=== PATIENT | male | born 1945 | race Caucasian/White ===

== ENCOUNTER 2019-02-22 13:34 | Day surgery (SDC) | payer OTHER ==
[~2019-02-22] VITALS: Ht 188 cm; Wt 133.7 kg
[~2019-02-22 13:34] MED LIST: ASPI81CH PO; Altoprev20 MG PO; CARV3.125 PO; DIGITEK; DIGO.25; DILT180 PO; ENOX120I SQ; FURO20 PO; GLIPIZIDE; INS70/30I; INSULANI; Levothyroxine200 MCG; METF500; TAMS.4ER PO; WARF5 PO; ZESTORETIC 20-121 EA
== END 2019-02-22 15:47 | disposition home or self-care (01) ==
LOC: ORSCSDS 13:34
PROVIDERS: Ophthalmology
PROC: 08RK3JZ Replacement of Left Lens with Synthetic Substitute, Percutaneous Approach (ICD-10-PCS; principal; 2019-02-22 15:00)
DX: H25.12 Age-related nuclear cataract, left eye (principal); H21.81 Floppy iris syndrome; I10 Essential (primary) hypertension; I48.91 Unspecified atrial fibrillation; E11.9 Type 2 diabetes mellitus without complications; E03.9 Hypothyroidism, unspecified; E78.00 Pure hypercholesterolemia, unspecified; E66.01 Morbid (severe) obesity due to excess calories; Z68.37 Body mass index [BMI] 37.0-37.9, adult; Z79.82 Long term (current) use of aspirin; Z79.899 Other long term (current) drug therapy
CPT/HCPCS: 82947; J2001; J2250; J3010; V2632

== ENCOUNTER 2019-08-10 09:42 | Inpatient (IN) | payer MEDICARE, OTHER ==
[~2019-08-10] VITALS: Ht 188 cm; Wt 145.6 kg
[2019-08-10] MEDS ORDERED: Sulfamethoxazo1 EAC4 PO (10:58)
[2019-08-10] MEDS ORDERED: LANOXIN125 MCG PO (10:59)
[2019-08-10] MEDS ORDERED: Humalog100 UNIT/1 SC (10:59)
[2019-08-10] MEDS ORDERED: METF500 PO (10:59)
[2019-08-10] MEDS ORDERED: TORSE20 PO (11:00)
[2019-08-10] MEDS ORDERED: LEVO-T175 MCG PO (11:00)
[2019-08-10 11:38] LABS: BASOPHILS ABSOLUTE AUTO 0.02 K/mm3 (0.00-0.23); BASOPHILS PERCENT AUTO 0 % (0-2); EOSINOPHILS ABSOLUTE AUTO 0.05 K/mm3 (0.00-0.68); EOSINOPHILS PERCENT AUTO 1 % (0-6); Hematocrit 34.2 % (37.0-53.0); Hemoglobin 11.2 g/dL (13.5-17.5); IMMATURE GRAN ABSOLUTE AUTO 0.03 K/mm3 (0.00-0.10); IMMATURE GRAN PERCENT AUTO 1 % (0-1); LYMPHOCYTES ABSOLUTE AUTO 0.69 K/mm3 (0.84-5.20); LYMPHOCYTES PERCENT AUTO 11 % (21-46); MONOCYTES ABSOLUTE AUTO 0.69 K/mm3 (0.16-1.47); MONOCYTES PERCENT AUTO 11 % (4-13); Mean Corpuscular HGB 28.6 pg (26.0-34.0); Mean Corpuscular HGB Conc 32.7 g/dL (31.5-36.5); Mean Corpuscular Volume 88 fL (80-100); Mean Platelet Volume 9.2 fL (9.1-12.4); NEUTROPHILS ABSOLUTE AUTO 4.78 K/mm3 (1.96-9.15); NEUTROPHILS PERCENT AUTO 76 % (41-73); Platelet Count 249 K/mm3 (150-400); RDW Coefficient Variation 15.6 % (11.7-14.2); RDW Standard Deviation 49.7 fL (35.1-46.3); Red Blood Cell Count 3.91 M/mm3 (4.30-5.90); White Blood Cell Count 6.26 K/mm3 (4.00-11.30)
[2019-08-10 11:57] LABS: Albumin, Blood 3.2 g/dL (3.4-5.0); Albumin/Globulin Ratio 0.7 (0.8-1.8); Bun/Creatinine Ratio 22.8 (12.0-20.0); Calcium, Blood 8.4 mg/dL (8.5-10.1); Creatinine, Blood 1.36 mg/dL (0.60-1.20); Globulin, Blood 4.8 g/dL (2.2-4.0); Potassium, Blood 4.5 mmol/L (3.5-5.5)
--- NOTE | 2019-08-10 15:20 | NUR ---
Assumed care of patient Received report from Khushbu VARGAS. Patient arrived via w/c and granddaughter at side. Transferred from w/c to bed independently. Oriented to room and settled in.
--- NOTE | 2019-08-10 16:19 | NUR ---
History, Chart, Medications and Allergies reviewed before start of procedure. Patient confirms NPO status and agrees with scheduled surgery, SINCE 929, ANESTHESIA AWARE OF 1/2 BAGEL AND CREAM CHEESE. Pre-Op teaching done. Pt verbalizes understanding.
--- NOTE | 2019-08-10 17:26 | NUR ---
08/10/19 1726 Nadya Montanez PATIENT'S OXYGEN CONCENTRATION SATURATION DECREASED AT BEGINNING OF CASE. PATIENT BECAME UNSTABLE. PATIENT TRANSFERRED TO ICU INTUBATED. INITIAL COUNT WAS THE ONLY COUNT PERFORMED. DR. OWENS STATED HE WOULD PUT IN ORDER FOR X-RAY IN ICU.
[2019-08-10 18:07] LABS: PCO2 Arterial 40.3 mmHg (35-45); PO2 Arterial 81.2 mmHg (80-100); pH Blood Arterial 7.44 (7.35-7.45)
--- NOTE | 2019-08-10 18:08 | NUR ---
RETURN FROM [facility]: PT RETURNED FROM PACER PLACEMENT PROCEDURE AT APPROX 1800. ON ARRIVAL, HE IS A&O, PLEASANT & COOPERATIVE. PER REPORT, SINGLE LEAD PACER WAS PLACED W/ INCISION NOTED TO L UPPER CHEST WALL. AREA SLIGHTLY TENDER TO PALPATION W/ SMALL AMNT OF SWELLING NOTED. 1 CM AREA OF SS DRAINAGE NOTED TO DRESSING IS UNCHANGED SINCE PT ARRIVAL. HYPOTENSIVE ON ARRIVAL, PER REPORT, DR GOMEZ IS AWARE & OKAY W/ HYPOTENSION LONG MAP REMAINS > 60. PT HAS NO DIZZINESS OR LIGHTHEADEDNESS R/T HYPOTENSION. 1 MG VERSED & 25 MCG FENTANYL GIVEN FOR CONSCIOUS SEDATION PER REPORT. ZOSYN INFUSING ON ARRIVAL. PACER SITE PRECAUTIONS HAVE BEEN DISCUSSED W/ THE PT & HE VERBALIZES UNDERSTANDING OF THIS. WILL CONTINUE TO MONITOR & REPORT OFF TO PRIMARY RN.
[2019-08-10 18:20] LABS: Troponin I <0.015 ng/mL (0.000-0.040)
[2019-08-10 18:28] LABS: Digoxin (Lanoxin) 0.91 ug/mL (0.80-2.00)
--- NOTE | 2019-08-10 18:56 | NUR ---
ARRIVAL TO ICU 1705 - PT ARRIVED TO ICU AT THIS TIME FROM OR. ARRIVED WITH ELEVATED HR 150S. LUNG SOUNDS COARSE AND RHONCHORUS THROUGHOUT. ETT SECURED AND VENT ATTACHED TO AC MODE BY RT. OGT INSERTED AND ATTACHED TO LIWS. CXR AND XRAYS OF FEET OBTAINED AT ARRIVAL TO ROOM. BUE RESTRAINED. PROPOFOL GTT STARTED AT ARRIVAL. MERLOS CATH INSERTED. HEPARIN GTT STARTED PER ORDERS. WILL GIVE BEDSIDE, HANDOFF REPORT TO NOC RN.
--- NOTE | 2019-08-10 19:00 | NUR ---
ASSUMED CARE ASSUMED CARE OF PATIENT. REMAINS INTUBATED- AC 14, TV 500, PEEP 10, FIO2 50%. RR 18-22. SEDATED WITH PROPOFOL AT 35MCG/KG/MIN. OPENS EYES MINIMALLY TO NOXIOUS STIMULI. OCCASIONAL SPONTANEOUS MOVEMENT NOTED IN UPPER AND LOWER EXTREMITIES. NOT FOLLOWING ANY COMMANDS. BILATERAL SOFT WRIST RESTRAINTS IN PLACE. OG TO LIS WITH SCANT CLEAR DRAINAGE. ABD SEVERLY DISTENDED AND FIRM. HYPOACTIVE, TYMPANIC BTs. MERLOS PATENT AND DRAININD CLEAR DARK YELLOW URINE. RIGHT FOOT WITH NON-ADHERENT DRSG AND COOPER WRAP IN PLACE. HEPARIN INFUSING PER PHARMACY. SEE SHIFT ASSESSMENT FOR FULL ASSESSMENT.
[2019-08-10 19:10] LABS: Source, Urine Catheter
[2019-08-10 19:12] LABS: Bilirubin, Urine Neg (Neg); Blood, Urine 2+ (Neg); Glucose Qualitative, Urine Neg (Neg); Ketones, Urine 1+ (Neg); Leukocyte Esterase, Urine 1+ (Neg); Nitrite, Urine Neg (Neg); Protein, Urine 2+ (Neg); Urobilinogen, Urine 2+ (Normal)
[2019-08-10 19:23] LABS: Appearance, Urine Clear (Clear); Color, Urine Yellow (P-Yellow)
[2019-08-10 19:25] LABS: Bacteria Few /hpf; Squamous Epithelial Cells Few /hpf (Few)
--- NOTE | 2019-08-10 21:12 | NUR ---
HYPOTHERMIA TEMPERATURE IS 95.1 PER MERLOS TEMP PROBE- WARM BLANKETS APPLIED AT THIS TIME.
--- NOTE | 2019-08-10 22:20 | NUR ---
HYPOTHERMIA TEMP 94.6 VIA MERLOS TEMP PROBE- RICHARDSON KINER ON AT THIS TIME.
[2019-08-11 02:56] LABS: PCO2 Arterial 29.9 mmHg (35-45); PO2 Arterial 73.7 mmHg (80-100); pH Blood Arterial 7.49 (7.35-7.45)
[2019-08-11 02:59] LABS: BASOPHILS ABSOLUTE AUTO 0.01 K/mm3 (0.00-0.23); BASOPHILS PERCENT AUTO 0 % (0-2); EOSINOPHILS PERCENT AUTO 0 % (0-6); Hematocrit 31.2 % (37.0-53.0); Hemoglobin 10.6 g/dL (13.5-17.5); IMMATURE GRAN ABSOLUTE AUTO 0.03 K/mm3 (0.00-0.10); IMMATURE GRAN PERCENT AUTO 1 % (0-1); LYMPHOCYTES ABSOLUTE AUTO 0.67 K/mm3 (0.84-5.20); LYMPHOCYTES PERCENT AUTO 10 % (21-46); MONOCYTES ABSOLUTE AUTO 0.28 K/mm3 (0.16-1.47); MONOCYTES PERCENT AUTO 4 % (4-13); Mean Corpuscular HGB 29.4 pg (26.0-34.0); Mean Corpuscular Volume 86 fL (80-100); Mean Platelet Volume 9.1 fL (9.1-12.4); NEUTROPHILS ABSOLUTE AUTO 5.58 K/mm3 (1.96-9.15); NEUTROPHILS PERCENT AUTO 85 % (41-73); Platelet Count 199 K/mm3 (150-400); RDW Coefficient Variation 15.5 % (11.7-14.2); RDW Standard Deviation 49.5 fL (35.1-46.3); Red Blood Cell Count 3.61 M/mm3 (4.30-5.90); White Blood Cell Count 6.57 K/mm3 (4.00-11.30)
[2019-08-11 03:23] LABS: Albumin, Blood 2.5 g/dL (3.4-5.0); Albumin/Globulin Ratio 0.6 (0.8-1.8); Bun/Creatinine Ratio 25.8 (12.0-20.0); Calcium, Blood 7.8 mg/dL (8.5-10.1); Creatinine, Blood 1.28 mg/dL (0.60-1.20); Free Thyroxine 1.43 ng/dL (0.70-1.60); Globulin, Blood 4.1 g/dL (2.2-4.0); Magnesium, Blood 1.9 mg/dL (1.6-2.4); Phosphorus, Blood 3.9 mg/dL (2.5-4.9); Potassium, Blood 4.8 mmol/L (3.5-5.5); Total Protein, Blood 6.6 g/dL (6.4-8.2)
[2019-08-11 03:26] LABS: Thyroid Stimulating Hormone 2.06 uIU/mL (0.360-4.800)
--- NOTE | 2019-08-11 03:45 | NUR ---
HEPARIN GTT CRITICAL PTT RESULTS CALLED TO PHARMACY. HEPARIN ON HOLD AT THIS TIME FOR ONE HOUR PER PHARMACY.
--- NOTE | 2019-08-11 06:35 | NUR ---
SHIFT SUMMARY NO ACUTE CHANGES. REMAINS INTUBATED- AC 14, TV 500, PEEP 10, FIO2 50%. RR 16-20s. MINIMAL SPUTUM PRODUCTION NOTED. SEDATED WITH PROPOFOL @ 35MCG/KG/MIN. MOVES ALL EXTREMITIES AND FOLLOWS SIMPLE COMMANDS. REACHES FOR ETT WHEN RESTRAINTS OFF. NODS HEAD YES/NO APPROPRIATELY. MONITOR SHOWS AFIB WITH BBB, RATE 50-80s. BP STABLE. RICHARDSON HUGGER ON FOR SEVERAL HOURS TO BRINGH TEMPERATURE UP. TEMP NOW 97.5. OG TO LIS WITH GREENISH-BROWN DRAINAGE. MERLOS PATENT AND DRAINING- BLOOD TINGED URINE NOTED THIS AM. NO CLOTS NOTED. HEPARIN GTT OFF FROM [id number] D/T CRITICALLY HIGH PTT. RESTARTED @ 0600 @ 13UNITS/KG/HR (27CC/HR). RIGHT FOOT DRSG C/D/I. WILL REPORT TO DAY SHIFT RN WHEN AVAILABLE.
--- NOTE | 2019-08-11 08:38 | NUR ---
DR. HUSTON IN TO SEE PT. INFORMED HIM OF PT'S HIGH BLOOD SUGARS AND RECEIVED ORDER TO INCREASE SLIDING SCALE TO MEDIUM SCALE. MD ASKED ABOUT ECHO RESULTS. NO REPORTS SEEN IN CHART AND NO ORDER FOR ECHO SEEN SO DR. HUSTON GAVE ORDER TO GET ECHO.
--- NOTE | 2019-08-11 09:44 | NUR ---
DR. BARKLEY TO THE BEDSIDE AND GAVE ORDER FOR WEANING TRIAL. PROPOFOL TURNED OFF AND PT WOKE UP QUICKLY, FOLLOWING COMMANDS, PULLING HARD AT THE RESTRAINTS TO TRY AND GET AT THE ETT. RT AND DR. BARKLEY AT THE BEDSIDE AND SWITCHED VENTILATOR SETTINGS FOR WEAN. DR. BARKLEY GAVE OK TO EXTUBATE. PT EXTUBATED BY RT DAVONTE AT 0940 AND PLACED ON 3L/NC. SPO2 98% SO O2 TURNED TO 2L/NC. PT IS DROWSY BUT TALKING CLEARLY. INSTRUCTIONS GIVEN FOR POST EXTUBATION PLAN OF CARE. CONTINUING TO MONITOR.
[2019-08-11] MEDS ORDERED: INSULANPEN SC (11:46)
--- NOTE | 2019-08-11 12:14 | NUR ---
echocardiogram completed
--- NOTE | 2019-08-11 13:09 | NUR ---
REASSESSMENT: PT WAS EXTUBATED THIS MORNING AND HAS DONE WELL SINCE. OXYGEN WAS TITRATED OFF AND PT IS MAINTAINIG SPO2 IN THE 90S ON RA. LUNGS ARE CLEAR THIS AFTERNOON, BUT DIM. PT HAS SLIGHT COUGH/CLEARING OF HIS THROAT, NOT PRODUCING ANY SPUTUM. HR REMAINS AFIB, RATE GOES UP TO THE 120S WITH ACTIVITY. BP STABLE. OG REMOVED WITH EXTUBATION AND PT IS TOLERATING DIABETIC DIET. DR. HUSTON NOTIFIED THAT PT TAKES LANTUS AT HOME AND INSULIN WAS ORDERED AND GIVEN WITH LUNCH. MERLOS REMOVED PER DR. BARKLEY'S ORDERS. PT'S FAMILY HAS BEEN BY AND WAS FULLY UPDATED.
--- NOTE | 2019-08-11 16:31 | NUR ---
SHIFT SUMMARY: PT HAS DONE WELL SINCE BEING EXTUBATED TODAY. HE REMAINS ON RA AND HIS LUNGS ARE CLEAR. AFIB WITH RATE IN THE 110-120S. BP STABLE. HE HAS BEEN OUT OF THE BED TO THE CHAIR WITH MINIMAL ASSISTANCE. DRESSING CHANGED ON HIS R FOOT PER DR. OWENS'S ORDER. MERLOS REMOVED THIS AFTERNOON, BUT PT HAS NOT VOIDED YET. CONTINUING TO MONITOR.
--- NOTE | 2019-08-11 20:00 | NUR ---
ASSUMED CARE NOTE: ASSUMED CARE OF PT AT 1900, RECEVIED REPORT FROM BIANCA. UPON ENTERING ROOM PT WAS SITTING IN RECLINER AND WAS ON ROOM AIR.HEPARIN WAS AT 13U/KG/HR. PT WAS ASKED TO ATTEMPT TO USE THE URINAL TO VOID, DUE TO PT'S NO URINE OUTPUT AFTER MERLOS REMOVAL. PT THEN STATED " I DO NOT THINK I HAVE TO GO, BUT I WILL TRY IN THE TOILET". PT WAS THEN ASSISTED TO THE TOILET, WITH MINIMAL ASSISTANCE. HOWEVER PT WAS UNSTEADY AND NEEDED SEVERAL CUES DURING AMBULATION TO TRANSFER SAFETLY. AFTER SEVERAL MINUTES OF ATTEMPTING TO URINATE, PT STATED " I FEEL LIKE I WENT" THERE WERE BLOOD CLOTS NOTED MIXED WITH URINE. PT WAS THEN TAKEN BACK TO BED, BED AT LOWEST LEVEL, ALARM ON, CALL LIGHT WITHIN REACH. WILL CONTINUE TO MONITOR FOR CHANGES.
--- NOTE | 2019-08-11 22:44 | NUR ---
UPDATE: DR. BARKLEY WAS ADVISED OF CRITICAL VALUE AT A.PTT, LOW URINE OUTPUT AND BLOOD IN URINE. HEPARIN WAS ADJUSTED TO 12U/KG/HR, AND ORDER TO BLADDER SCAN WAS GIVEN.
--- NOTE | 2019-08-12 02:15 | NUR ---
UPDATE: PT WAS ABLE TO VOID APPROX. 175 CC IN ONE ATTEMPT, HOWEVER, PT WAS COMPLANING OF PAIN WITH URINATIONS. PT STATED " I THINK I AM EMPTYING MY BLADDER, BUT I DO NOT KNOW". PT WAS THEN BLADDER SCANNED WHICH INDICATED NO RESIDUAL URINE. PT URINE IS BLOODY AND HE CONTINUES TO OOZE BLOOD FROM URETHRAL OPENING. WHILE PT WAS TRYING TO FALL ASLEEP HIS SP02 DROPPED TO 85%, PT WAS THEN PLACED ON 2L OF 02 VIA NC, HIS SPO2 IS NOW MAINTANING ABOVE 90%.
[2019-08-12 04:36] LABS: BASOPHILS ABSOLUTE AUTO 0.02 K/mm3 (0.00-0.23); BASOPHILS PERCENT AUTO 0 % (0-2); EOSINOPHILS ABSOLUTE AUTO 0.04 K/mm3 (0.00-0.68); EOSINOPHILS PERCENT AUTO 0 % (0-6); Hematocrit 31.1 % (37.0-53.0); Hemoglobin 10.5 g/dL (13.5-17.5); IMMATURE GRAN ABSOLUTE AUTO 0.04 K/mm3 (0.00-0.10); IMMATURE GRAN PERCENT AUTO 0 % (0-1); LYMPHOCYTES ABSOLUTE AUTO 1.08 K/mm3 (0.84-5.20); LYMPHOCYTES PERCENT AUTO 11 % (21-46); MONOCYTES ABSOLUTE AUTO 1.17 K/mm3 (0.16-1.47); MONOCYTES PERCENT AUTO 12 % (4-13); Mean Corpuscular HGB 29.2 pg (26.0-34.0); Mean Corpuscular HGB Conc 33.8 g/dL (31.5-36.5); Mean Corpuscular Volume 87 fL (80-100); NEUTROPHILS ABSOLUTE AUTO 7.32 K/mm3 (1.96-9.15); NEUTROPHILS PERCENT AUTO 76 % (41-73); Platelet Count 244 K/mm3 (150-400); RDW Coefficient Variation 15.5 % (11.7-14.2); RDW Standard Deviation 49.4 fL (35.1-46.3); Red Blood Cell Count 3.59 M/mm3 (4.30-5.90); White Blood Cell Count 9.67 K/mm3 (4.00-11.30)
[2019-08-12 04:54] LABS: Bun/Creatinine Ratio 29.9 (12.0-20.0); Creatinine, Blood 1.44 mg/dL (0.60-1.20); Magnesium, Blood 1.9 mg/dL (1.6-2.4); Phosphorus, Blood 4.2 mg/dL (2.5-4.9); Potassium, Blood 3.9 mmol/L (3.5-5.5)
--- NOTE | 2019-08-12 06:22 | NUR ---
SHIFT SUMMARY: PT HAS BEEN UNABLE TO GET REST DURING THIS SHIFT, STATING THAT HE IS HAVING TROUBLE SLEEPING. PT REMAINS ALERT AND ORIENTED, HOWEVER, HE SEEMS TO HAVE FORGETFUL MOMENTS WHERE INFO NEEDS TO BE REITERATED TO HIM. PT REMAINS ON 2L OF 02 VIA NC DUE TO THE DROP IN SPO2 WHILE PT SLEEPS. PT HAS BEEN GETTING UP WITH MINIMAL ASSISTANCE TO THE TOILET. LAST URINE OUTPUT WAS MORE OG IN COLOR, NO BLOOD CLOTS NOTED. PT REMAINS IN A-FIB WITH HR RANGING 100-120 BPM. HEPARIN RUNNING AT 12U/KG/HR. WILL CONTINUE TO MONITOR PT UNTIL REPORT IS GIVEN TO ONCOMING SHIFT.
--- NOTE | 2019-08-12 10:46 | NUR ---
TRASNFER: PT TRANSFERRED TO RM 227 VIA WC WITH RN. PT TOLERATED TRANSFER WELL. ALL BELONGINGS SENT WITH PT.
[2019-08-12 16:01] LABS: International Normalized Ratio 1.11; Prothrombin Time Results 11.7 Sec (9.7-11.5)
--- NOTE | 2019-08-12 17:20 | NUR ---
PT TO U/S FOR PARACENTESIS
[2019-08-12 17:45] LABS: Vancomycin, Trough 14.4 ug/mL (5.0-10.0)
--- NOTE | 2019-08-12 20:47 | NUR ---
SUMMARY PT WENT TO RADIOLOGY THIS EVENING FOR A PARACENTESIS. THEY REMOVED 4 L AND STATED THAT HE WOULD BENEFIT FROM HAVING THE PROCEDURE AGAIN TOMORROW. VITAL SIGNS REMAIN STABLE AT THIS TIME. PT EDUCATED ABOUT THE PROCEDURE AND RISKS BEFORE AND AFTER AND ENCOURAGED TO CALL THE NURSE FOR ANY CHANGES OR IF HE STARTS TO FEEL DIFFERENT IN ANY WAY. PT STATED UNDERSTANDING. LUNGS REMAIN CLEAR, SLIGHTLY DIM IN BASES, ON ROOM AIR. DRSG IS C/D/I. PT ENC TO ELEVATE LOWER EXTREMITIES. HEPERIN INFUSING PER PHARMACY @ 20.8 UNITS PER HOUR. A CRITICAL PTT IS SHOWING IN THE CHART DUE TO A CONTAMINATED DRAW WHEN THE PT FIRST ARRIVED TO THE FLOOR. THE CHARGE NURSE MISHA THE SAMPLE FROM THE MIDLINE AND WAS UNAWARE THAT THE PT WAS ON HEPERIN. THE BLOOD SAMPLE WAS REDRAWN. PT IS A&O X4, BEDSIDE REPORT WAS GIVEN TO THE NOC RN. CALL LIGHT IN REACH.
[2019-08-13 04:48] LABS: BASOPHILS ABSOLUTE AUTO 0.02 K/mm3 (0.00-0.23); BASOPHILS PERCENT AUTO 0 % (0-2); EOSINOPHILS ABSOLUTE AUTO 0.11 K/mm3 (0.00-0.68); EOSINOPHILS PERCENT AUTO 1 % (0-6); Hematocrit 29.2 % (37.0-53.0); Hemoglobin 9.8 g/dL (13.5-17.5); IMMATURE GRAN ABSOLUTE AUTO 0.04 K/mm3 (0.00-0.10); IMMATURE GRAN PERCENT AUTO 0 % (0-1); LYMPHOCYTES PERCENT AUTO 13 % (21-46); MONOCYTES ABSOLUTE AUTO 1.01 K/mm3 (0.16-1.47); MONOCYTES PERCENT AUTO 11 % (4-13); Mean Corpuscular HGB 28.4 pg (26.0-34.0); Mean Corpuscular HGB Conc 33.6 g/dL (31.5-36.5); Mean Corpuscular Volume 85 fL (80-100); Mean Platelet Volume 9.2 fL (9.1-12.4); NEUTROPHILS ABSOLUTE AUTO 6.63 K/mm3 (1.96-9.15); NEUTROPHILS PERCENT AUTO 74 % (41-73); Platelet Count 243 K/mm3 (150-400); RDW Coefficient Variation 15.5 % (11.7-14.2); RDW Standard Deviation 47.8 fL (35.1-46.3); Red Blood Cell Count 3.45 M/mm3 (4.30-5.90); White Blood Cell Count 9.01 K/mm3 (4.00-11.30)
[2019-08-13 05:06] LABS: Anion Gap 7 mmol/L (6-16); Blood Urea Nitrogen 40 mg/dL (8-24); Bun/Creatinine Ratio 33.3 (12.0-20.0); CO2, Blood 27 mmol/L (21-32); Calcium, Blood 8.2 mg/dL (8.5-10.1); Chloride, Blood 90 mmol/L (98-108); Glomerular Filtration Rate >60 (60-); Glucose, Blood 176 mg/dL (70-99); Potassium, Blood 4.1 mmol/L (3.5-5.5); Sodium, Blood 124 mmol/L (136-145)
--- NOTE | 2019-08-13 05:42 | NUR ---
PATIENT WAS EXCITED TO BE OUT OF THE ICU AND IN A QUIETER UNIT TO GET SOME SLEEP. HOWEVER, HE LIKELY WOKE EVERY HOUR FOR SOME INTERVENTION. THE CLINICAL COORDINATOR CHANGED THE DRESSING TO HIS RT FOOT, PER THE ORDERS WITH 1 INCH IODAFORM, VASELINE GAUZE, 4x4S, COBAN AND AN COOPER WRAP. PATIENT HAD A PARACENTIESIS 12+ HOURS AGO AND HER STATED THAT HE IS ABLE TO MOVE AROUND EASIER AND THE HIS STOMACH IS MUCH SMALLER AND NOT TIGHT. THE 4x4 GAUZE ON THE RT SIDE OF HIS ABDOMEN HAD A SLIGHT PINK TINGE TO IT. CHANGED GAUZE AND TAPE. hE IS EXPECTED TO HAVE A SECOND PARACENTESIS TODAY.
--- NOTE | 2019-08-13 09:41 | NUR ---
PT TO XRAY VIA WHEELCHAIR.
--- NOTE | 2019-08-13 10:23 | NUR ---
PT BACK FROM XRAY AT 1020
--- NOTE | 2019-08-13 11:38 | NUR ---
DR. BARKLEY IN TO SEE PT TODAY AT 1100. PLAN FOR SLEEP STUDY AND FOLLOW-UP WITH DR. BARKLEY AFTER DISCHARGE. ORDER OBTAINED AND SCRIPT FAXED TO SLEEP LAB.
--- NOTE | 2019-08-13 11:48 | NUR ---
FAXED SLEEP STUDY ORDERS TO [facility]EP [facility].
--- NOTE | 2019-08-13 13:49 | NUR ---
PT TO PARACENTESIS
--- NOTE | 2019-08-13 16:01 | NUR ---
IMAGING SUGGESTED ALBUMIN FOR PARACENTESIS TAKE OFF OF GREATER THAN 4L. NOTIFIED DR HUSTON.
--- NOTE | 2019-08-13 18:43 | NUR ---
SHIFT SUMMARY DR. OWENS IN TO CHANGE DRESSING THIS EVENING. PARACENTESIS PERFORMED, 5L REMOVED. PATIENT REPORTED BLACK STOOLS, NOTIFIED DOCTOR AND NEW ORDERS OBTAINED. IND IN ROOM WITH CALL LIGHT WITHIN REACH.
[2019-08-13 20:44] LABS: BASOPHILS ABSOLUTE AUTO 0.02 K/mm3 (0.00-0.23); BASOPHILS PERCENT AUTO 0 % (0-2); EOSINOPHILS ABSOLUTE AUTO 0.06 K/mm3 (0.00-0.68); EOSINOPHILS PERCENT AUTO 1 % (0-6); Hematocrit 25.5 % (37.0-53.0); Hemoglobin 8.5 g/dL (13.5-17.5); IMMATURE GRAN ABSOLUTE AUTO 0.04 K/mm3 (0.00-0.10); IMMATURE GRAN PERCENT AUTO 1 % (0-1); LYMPHOCYTES ABSOLUTE AUTO 0.94 K/mm3 (0.84-5.20); LYMPHOCYTES PERCENT AUTO 14 % (21-46); MONOCYTES ABSOLUTE AUTO 0.92 K/mm3 (0.16-1.47); MONOCYTES PERCENT AUTO 13 % (4-13); Mean Corpuscular HGB 28.5 pg (26.0-34.0); Mean Corpuscular HGB Conc 33.3 g/dL (31.5-36.5); Mean Corpuscular Volume 86 fL (80-100); Mean Platelet Volume 8.7 fL (9.1-12.4); NEUTROPHILS ABSOLUTE AUTO 4.97 K/mm3 (1.96-9.15); NEUTROPHILS PERCENT AUTO 72 % (41-73); Platelet Count 174 K/mm3 (150-400); RDW Coefficient Variation 15.4 % (11.7-14.2); Red Blood Cell Count 2.98 M/mm3 (4.30-5.90); White Blood Cell Count 6.95 K/mm3 (4.00-11.30)
--- NOTE | 2019-08-13 22:09 | NUR ---
NOTIFIED DR HUSTON OF [facility] H/H RESULTS.NO NEW ORDERS RECEIVED.
[2019-08-14 05:32] LABS: BASOPHILS ABSOLUTE AUTO 0.02 K/mm3 (0.00-0.23); BASOPHILS PERCENT AUTO 0 % (0-2); EOSINOPHILS ABSOLUTE AUTO 0.12 K/mm3 (0.00-0.68); EOSINOPHILS PERCENT AUTO 1 % (0-6); Hematocrit 26.9 % (37.0-53.0); IMMATURE GRAN ABSOLUTE AUTO 0.03 K/mm3 (0.00-0.10); IMMATURE GRAN PERCENT AUTO 0 % (0-1); LYMPHOCYTES ABSOLUTE AUTO 0.98 K/mm3 (0.84-5.20); LYMPHOCYTES PERCENT AUTO 12 % (21-46); MONOCYTES ABSOLUTE AUTO 1.09 K/mm3 (0.16-1.47); MONOCYTES PERCENT AUTO 13 % (4-13); Mean Corpuscular HGB 29.2 pg (26.0-34.0); Mean Corpuscular HGB Conc 33.5 g/dL (31.5-36.5); Mean Corpuscular Volume 87 fL (80-100); Mean Platelet Volume 8.7 fL (9.1-12.4); NEUTROPHILS ABSOLUTE AUTO 6.21 K/mm3 (1.96-9.15); NEUTROPHILS PERCENT AUTO 74 % (41-73); Platelet Count 192 K/mm3 (150-400); RDW Coefficient Variation 15.5 % (11.7-14.2); RDW Standard Deviation 49.5 fL (35.1-46.3); Red Blood Cell Count 3.08 M/mm3 (4.30-5.90); White Blood Cell Count 8.45 K/mm3 (4.00-11.30)
[2019-08-14 05:48] LABS: Anion Gap 7 mmol/L (6-16); Blood Urea Nitrogen 34 mg/dL (8-24); CO2, Blood 27 mmol/L (21-32); Calcium, Blood 7.8 mg/dL (8.5-10.1); Chloride, Blood 97 mmol/L (98-108); Creatinine, Blood 1.03 mg/dL (0.60-1.20); Glomerular Filtration Rate >60 (60-); Glucose, Blood 107 mg/dL (70-99); Sodium, Blood 131 mmol/L (136-145)
--- NOTE | 2019-08-14 07:20 | NUR ---
SUMMARY SPOKE WITH DR JOHNSON REGARDING ? ABOUT IV FLUID ORDERS? HEP DRIP STOPPED.LABS. DR INSTRUCTED ME TO KEEP HEPARIN OFF AND TO CONTINUE TO MONITOR LABS AND WILL READDRESS THE REST IN AM.
--- NOTE | 2019-08-14 08:35 | NUR ---
DR HUSTON IN TO SEE PT.
--- NOTE | 2019-08-14 11:10 | NUR ---
DR. HUSTON IN TO SEE PATIENT THIS MORNING. NEW ORDERS OBTAINED.
--- NOTE | 2019-08-14 12:11 | NUR ---
LEFT MS WITH DR. NESBITT'S ANSWERING SERVICE TODAY AT 1200.
--- NOTE | 2019-08-14 17:53 | NUR ---
SHIFT SUMMARY NO ACUTE CHANGES T/O SHIFT. KLOEPPER IN TO CHANGE DRESSING THIS EVENING. DR. NESBITT CALLED FOR CONSULT PER ORDERS R/T BLACK STOOLS. CALL LIGHT WITHIN REACH AND IND IN ROOM.
[2019-08-15 05:57] LABS: BASOPHILS ABSOLUTE AUTO 0.03 K/mm3 (0.00-0.23); BASOPHILS PERCENT AUTO 0 % (0-2); EOSINOPHILS ABSOLUTE AUTO 0.11 K/mm3 (0.00-0.68); EOSINOPHILS PERCENT AUTO 1 % (0-6); Hemoglobin 9.7 g/dL (13.5-17.5); IMMATURE GRAN ABSOLUTE AUTO 0.08 K/mm3 (0.00-0.10); IMMATURE GRAN PERCENT AUTO 1 % (0-1); LYMPHOCYTES ABSOLUTE AUTO 0.93 K/mm3 (0.84-5.20); LYMPHOCYTES PERCENT AUTO 9 % (21-46); MONOCYTES ABSOLUTE AUTO 1.14 K/mm3 (0.16-1.47); MONOCYTES PERCENT AUTO 11 % (4-13); Mean Corpuscular HGB 29.3 pg (26.0-34.0); Mean Corpuscular HGB Conc 33.4 g/dL (31.5-36.5); Mean Corpuscular Volume 88 fL (80-100); Mean Platelet Volume 8.6 fL (9.1-12.4); NEUTROPHILS ABSOLUTE AUTO 7.98 K/mm3 (1.96-9.15); NEUTROPHILS PERCENT AUTO 78 % (41-73); Platelet Count 229 K/mm3 (150-400); RDW Coefficient Variation 15.6 % (11.7-14.2); RDW Standard Deviation 50.4 fL (35.1-46.3); Red Blood Cell Count 3.31 M/mm3 (4.30-5.90); White Blood Cell Count 10.27 K/mm3 (4.00-11.30)
--- NOTE | 2019-08-15 08:33 | NUR ---
SUMMARY NO ACUTE CHANGES NOTED THROUGH THE NIGHT. PT REMAINS A&O X4, INDEPENDENT IN ROOM. PT STATES HIS BM'S HAVE TURNED DARK GREEN. HE CONTINUES TO HAVE MULTIPLE. IN TO SEE PT. PT WILL BE GOING FOR A SCOPE THIS EVENING. PT IS UP IN HIS CHAIR THIS MORNING. CALL LIGHT IN REACH. REPORT GIVEN TO DAY RN
--- NOTE | 2019-08-15 09:48 | NUR ---
0900 PATIENT TELLS ME HE IS BEING DISCHARGED TODAY AND IS NOT GOING TO HAVE HIS EGD. SPOKE WITH DR HUSTON AND PATIENT IS REQUESTING DISCHARGE, DISCHARGE WILL BE AMA. ANTONIO RUSS RN AND I REVIEWED AMA PAPER WITH PATIENT AND PATIENT SIGNED.
--- NOTE | 2019-08-15 11:46 | NUR ---
1115 patient requests he be discharged home now with his grandson. discussed with patient that I am awaiting discharge meds reconcilliation- patient atTES HE IS NOT WAITING FOR ORDERS TO BE ENTERED AND THAT HE WILL FOLLOW UP WITH HIS PCP. RIGHT FOOD NUGUAZE REMOVED, CLEANSED WITH WOUND CLEANSER AND REPACKED WITH 1/4" NUGUAZE, NO DRAINAGE FROM WOUND. DISCUSSED WITH PATIENT THAT HE SHOULD RETURN TO THE EMERGENCY ROOM IF ANY WORSENING OF HIS CONDITION. 1130 PATIENT DISCHARGED TO HOME WITH HIS GRANDSON
== END 2019-08-15 11:30 | disposition left against medical advice (07) | DRG 637 ==
LOC: ER 09:42 → MEDS 09:43 → ICUE 17:12 → SURS 17:47 → ICUE 17:47 → SURS 08-12 10:45
PROVIDERS: Hospitalist; Internal Medicine; Internal Medicine Critical Care Medicine; Nurse Practitioner Acute Care; Orthopaedic Surgery; Physician Assistant; ADMIT Family Medicine
PROC: 0HDMXZZ Extraction of Right Foot Skin, External Approach (ICD-10-PCS; principal; 2019-08-11)
PROC: 0BH17EZ Insertion of Endotracheal Airway into Trachea, Via Natural or Artificial Opening (ICD-10-PCS; 2019-08-11)
PROC: 5A1935Z Respiratory Ventilation, Less than 24 Consecutive Hours (ICD-10-PCS; 2019-08-11)
PROC: 0W9G3ZZ Drainage of Peritoneal Cavity, Percutaneous Approach (ICD-10-PCS; 2019-08-12)
PROC: 0W9G3ZZ Drainage of Peritoneal Cavity, Percutaneous Approach (ICD-10-PCS; 2019-08-13)
DX: E11.621 Type 2 diabetes mellitus with foot ulcer (principal); J96.01 Acute respiratory failure with hypoxia; I48.20 Chronic atrial fibrillation, unspecified; I13.0 Hypertensive heart and chronic kidney disease with heart failure and stage 1 through stage 4 chronic kidney disease, or unspecified chronic kidney disease; E87.1 Hypo-osmolality and hyponatremia; K92.1 Melena; R18.8 Other ascites; L97.519 Non-pressure chronic ulcer of other part of right foot with unspecified severity; E11.22 Type 2 diabetes mellitus with diabetic chronic kidney disease; E66.01 Morbid (severe) obesity due to excess calories; E03.9 Hypothyroidism, unspecified; N40.1 Benign prostatic hyperplasia with lower urinary tract symptoms; K74.60 Unspecified cirrhosis of liver; I50.813 Acute on chronic right heart failure; I27.20 Pulmonary hypertension, unspecified; I36.1 Nonrheumatic tricuspid (valve) insufficiency; Z79.4 Long term (current) use of insulin; E78.5 Hyperlipidemia, unspecified; N18.3 Chronic kidney disease, stage 3 (moderate); Z68.38 Body mass index [BMI] 38.0-38.9, adult
CPT/HCPCS: 31720; 36415; 36600; 49083; 51702; 71045; 71260; 73620; 73701; 80048; 80053; 80162; 80202; 81001; 82330; 82803; 82947; 83605; 83735; 83880; 84100; 84145; 84439; 84443; 84484; 85025; 85610; 85651; 85730; 86140; 87070; 87075; 87077; 87086; 87147; 87186; 87205; 93005; 93010; 93306; 93970; 94002; 94003; 94762; 99284-25; A9270; C1751; C9113; G0378; J0330; J0610; J0696; J0713; J1100; J1644; J2250; J2405; J2543; J2704; J3370; J7030; J7050; J7120; P9041; P9046; Q9967